=== PATIENT | female | born 1945 | race Caucasian/White ===

== ENCOUNTER → 2016-06-12 | Outpatient (CLI) | payer OTHER ==
[~2016-06-12] MED LIST: ABILIFY10 MG GT; ABILIFY10 MG PO; ANALGESIC325 M1 G-TUBE; ARICEPT10 MG GT; ARICEPT5 MG PO; ARTIFICIAL TEAR15 M6 LEFT EYE; BACLOFEN20 MG GT; CATAPRES0.1 MG PO; CENTRUM SILVER1 EACH PO; CITALOPRAM HBR20 M1 PO; COUMADIN,JANTOVE4 MG PO; CYMBALTA30 MG PO; DEPAKENE250 MG/5 M GT; DOCU LIQUI50 MG/5 ML GT; DULCOLAX10 MG PR; DURAGESIC25 MCG TD; FENTANYL1 EA12 TD; FLORASTOR250 MG GT; K-DUR20 MEQ PO; LORAZEPAM0.5 MG PO; METOPROLOL SUCC25 MG PO; METOPROLOL TART25 MG GT; MILK OF MAGN GT; MIRALAX17 GM GT; NASACORT AQ16.5 GM NS; NORVASC5 MG PO; OMEPRAZOLE20 M1 PO; PERIDEX1 ML MM; PRAVASTATIN SOD80 MG GT; PRINIVIL20 MG PO; Protonix G; RANITIDINE15 MG/1 ML GT; SIMVASTATIN40 M1 PO; STAVZOR500 MG PO; TYLENOL650 MG/20. GT; VITAMIN B 12; ZOCOR40 MG PO; ZOFRAN0.8 MG/1 M GT
== END ==
LOC: RAD 06-05 14:30 → EDSTATUS 15:00 → RAD 15:00
PROC: 0DH67UZ Insertion of Feeding Device into Stomach, Via Natural or Artificial Opening (ICD-10-PCS; principal; 2016-06-12)
DX: Z43.1 Encounter for attention to gastrostomy (principal)
CPT/HCPCS: C1769

== ENCOUNTER → 2016-09-25 | Outpatient (CLI) | payer OTHER | LOC: RAD 13:54 | PROC: 0DH67UZ Insertion of Feeding Device into Stomach, Via Natural or Artificial Opening (ICD-10-PCS; principal; 2016-09-25) | DX: K94.20 Gastrostomy complication, unspecified (principal) | CPT/HCPCS: C1766 ==

== ENCOUNTER → 2017-01-14 | Outpatient (CLI) | payer OTHER | LOC: RAD 13:28 | PROC: 0DH87UZ Insertion of Feeding Device into Small Intestine, Via Natural or Artificial Opening (ICD-10-PCS; principal; 2017-01-14) | DX: K94.23 Gastrostomy malfunction (principal) | CPT/HCPCS: C1769 ==

== ENCOUNTER → 2017-04-23 | Outpatient (CLI) | payer OTHER | LOC: RAD 12:51 | PROC: 0DH87UZ Insertion of Feeding Device into Small Intestine, Via Natural or Artificial Opening (ICD-10-PCS; principal; 2017-04-23) | DX: K94.20 Gastrostomy complication, unspecified (principal) | CPT/HCPCS: C1766 ==

== ENCOUNTER → 2017-08-05 | Outpatient (CLI) | payer OTHER | LOC: RAD 13:35 | PROC: 0DH87UZ Insertion of Feeding Device into Small Intestine, Via Natural or Artificial Opening (ICD-10-PCS; principal; 2017-08-05) | DX: K94.23 Gastrostomy malfunction (principal) | CPT/HCPCS: C1766; C1769 ==

== ENCOUNTER → 2017-11-21 | Outpatient (CLI) | payer OTHER ==
[~2017-11-21] MED LIST changes: +FENTANYL1 EAC2 TD
== END ==
LOC: RAD 13:32
PROC: 0DH87UZ Insertion of Feeding Device into Small Intestine, Via Natural or Artificial Opening (ICD-10-PCS; principal; 2017-11-21)
DX: K94.20 Gastrostomy complication, unspecified (principal)
CPT/HCPCS: 75984; C1766; C1769

== ENCOUNTER → 2018-01-03 | Outpatient (CLI) | payer OTHER ==
[~2018-01-03] MED LIST changes: +CALCIUM500 M4 GT; +CHILDREN'S160 MG/12 GT; +JEVITY 1.5 CAL237 ML GT; +LASIX20 MG IM
== END ==
LOC: RAD 01-02 15:00
PROC: 0DHA7DZ Insertion of Intraluminal Device into Jejunum, Via Natural or Artificial Opening (ICD-10-PCS; principal; 2018-01-03)
DX: K94.23 Gastrostomy malfunction (principal)
CPT/HCPCS: C1769